=== PATIENT | male | born 1955 | race African-American/Black ===

== ENCOUNTER 2017-11-01 14:59 | Inpatient (IN) | payer OTHER, MEDICAID ==
[~2017-11-01] VITALS: Ht 185.4 cm; Wt 81.2 kg
--- NOTE | 2017-11-01 15:15 | NUR ---
PT PRESENTED TO THE ER WITH A C/O SI WITHOUT A PLAN. PT AMBULATED TO BED #11 WITH A SLOW STEADY GAIT.
--- NOTE | 2017-11-01 15:20 | NUR ---
PT AMBULATED TO THE BATHROOM AND A URINE SAMPLE WAS OBTAINED.
[2017-11-01] MEDS ORDERED: ALPRAZOLAM 0.5 MG TABLET PO ONE (15:30)
[2017-11-01] MEDS ORDERED: ALPRAZOLAM 0.5 MG TABLET ONE (15:39)
[2017-11-01 15:43] LABS: BASOPHILS % (AUTO) 0.4 % (0.0-2.0); EOSINOPHILS % (AUTO) 2.8 % (0.0-6.0); HEMATOCRIT 43 % (39-51); HEMOGLOBIN 14.3 g/dL (13.5-17.5); LYMPHOCYTES # (AUTO) 1.2 /CMM (0.8-4.8); LYMPHOCYTES % (AUTO) 24.6 % (20.0-44.0); MEAN CORPUSCULAR HGB CONC 33 g/dl (31.0-36.0); MEAN CORPUSCULAR VOLUME 86 fL (80-96); MONOCYTES # (AUTO) 0.3 /CMM (0.1-1.30); MONOCYTES % (AUTO) 5.7 % (2.0-12.0); NEUTROPHILS # (AUTO) 3.2 /CMM (1.8-8.9); NEUTROPHILS % (AUTO) 66.5 % (43.0-81.0); PLATELET COUNT (AUTO) 235 /CMM (150-450); RDW COEFFICIENT OF VARIATION 13.2 (11.5-15.0); RED BLOOD CELL COUNT(AUTO) 5.05 MIL/uL (4.5-6.0); WHITE BLOOD COUNT (AUTO) 4.8 K/uL (4.3-11.0)
[2017-11-01 16:09] LABS: ALANINE AMINOTRANSFERASE 45 U/L (12-78); ALBUMIN 3.7 g/dL (3.4-5.0); ALCOHOL, BLOOD < 3 mg/dL (0-0); ALKALINE PHOSPHATASE 110 U/L (46-116); ASPARTATE AMINOTRANSFERASE 27 U/L (15-37); BILIRUBIN,DIRECT 0.1 mg/dL (0.0-0.2); BILIRUBIN,TOTAL 0.3 mg/dL (0.2-1.0); CARBON DIOXIDE 26 mmol/L (21-32); CHLORIDE 107 mmol/L (98-107); CREATININE 1.2 mg/dL (0.6-1.3); GLUCOSE 105 mg/dL (74-106); POTASSIUM 3.8 mmol/L (3.5-5.1); SODIUM SERUM 142 mmol/L (136-145); TOTAL PROTEIN, SERUM 7.4 g/dL (6.4-8.2); UREA NITROGEN, BLOOD 24 mg/dL (7-18)
[2017-11-01 16:23] LABS: ACETAMINOPHEN < 10 ug/ml (10-30); SALICYLATE 2.7 mg/dL (2.8-20.0)
[2017-11-01 16:26] LABS: APPEARANCE,URINE CLEAR (CLEAR); BILIRUBIN,URINE NEGATIVE (NEGATIVE); BLOOD, URINE NEGATIVE Ery/uL (NEGATIVE); COLOR,URINE YELLOW (YELLOW); KETONES,URINE NEGATIVE (NEGATIVE); LEUKOCYTE ESTERASE ,URINE NEGATIVE (NEGATIVE); NITRITE, URINE NEGATIVE (NEGATIVE); PROTEIN,URINE NEGATIVE (NEGATIVE); UGLUCOSE NEGATIVE (NEGATIVE); UROBILINOGEN,URINE 0.2 EU/dL (0.2)
--- NOTE | 2017-11-01 17:15 | NUR ---
Genaro lee in ED - 11/01/17 at 1924 by BERT PT PRESENTED TO THE ER WITH A C/O SI WITHOUT A PLAN. PT AMBULATED TO BED #11 WITH A SLOW STEADY GAIT.
--- NOTE | 2017-11-01 17:24 | NUR ---
CALLED JODEE SAL AND SHE SAID SHE WOULD BE HERE WITHIN THE HOUR
--- NOTE | 2017-11-01 18:06 | NUR ---
PT APPEARS TO BE RESTING COMFORTABLY WITH NO S/S OF PAIN OR DISTRESS.
[2017-11-01] MEDS ORDERED: QUET50TA14 PO (19:10)
[2017-11-01] MEDS ORDERED: ZOLP10TA6 PO (19:10)
[2017-11-01] MEDS ORDERED: LEVO100T9 PO (19:10)
[2017-11-01] MEDS ORDERED: VARE1TAB PO (19:10)
[2017-11-01] MEDS ORDERED: ALPR2TAB7 PO (19:10)
--- NOTE | 2017-11-01 19:25 | NUR ---
PT APPEARS TO BE SLEEPING SOUNDLY WITH NO S/S OF PAIN OR DISTRESS.
--- NOTE | 2017-11-01 20:08 | NUR ---
CALLED NURSING FEATHER TRIMMER AND REQUESTED A GPS BED FOR THIS PT.
--- NOTE | 2017-11-01 20:10 | NUR ---
PT REC'D A SANDWICH AND JUICE WITH JELLO.
--- NOTE | 2017-11-01 20:15 | NUR ---
PT IS ASSIGNED TO GPS RM#: [id number], PT IS DIAGNOSED WITH BI-POLAR DISORDER, AND DR MCCANN IS THE ACCEPTING PSYCHIATRIST
--- NOTE | 2017-11-01 20:44 | NUR ---
ACCEPTING MD'S ARE DR. MCCANN AND DR. WHEATLEY
--- NOTE | 2017-11-01 21:00 | NUR ---
GPS EAR MACHINE OPERATOR NOTES: ADMITTED A 62YO MALE FROM THE ED ON 5150 HOLD FOR DANGER TO SELF WITH COMPLAINS OF SUICIDAL IDEATION. PER HOLD THE PATIENT REPORTED TO BE HEARING VOICES, EXPRESSING SUICIDAL IDEATIONS WITH A PLAN TO OVERDOSE ON MEDICATIONS. PATIENT IS NON COMPLIANT ON MEDICATIONS, HAS A HISTORY IF BIPOLAR DISORDER, FEELING PARANOID AND SUSPICIOUS THAT PEOPLE ARE AFTER HIM. IT IS ALSO STATED IN THE HOLD THAT HE HAS HISTORY OF INPATIENT PSYCHIATRIC TREATMENT IN THE PAST AND THAT VOICES ARE TELLING HIM TO HURT HIMSELF. PATIENT WAS BEING BROUGHT IN THE UNIT VIA WHEELCHAIR BY ED PERSONNEL. PATIENT THEN USHERED TO THE ROOM AND CHANGED TO PATIENT'S CLEAN GOWN. UPON FACE TO FACE EVALUATION, PATIENT PRESENTS ALERT AND ORIENTED X2-3. APPEARS DISHEVELED. UNKEMPT, TALKS MINIMALLY TO STAFF, APPEARS EASILY AGITATED AND REFUSED TO SIGN ADMISSION PAPERS. SKIN AND BODY ASSESSMENT DONE. PATIENT SKIN IS CLEAR AND INTACT. PICTURE OF THE PACEMAKER ON THE RIGHT UPPER CHEST PLACED IN THE CHART. UNABLE TO OBTAIN FULL DETAILED MEDICAL HISTORY PATIENT REQUESTED TO BE LEFT ALONE SO HE CAN SLEEP. PATIENT ADMITS TO HEARING VOICES BUT NOT AT THE PRESENT TIME OF ADMISSION. PATIENT AGREED TO CONTRACT FOR SAFETY AND TO REPORT TO THE NURSES ONCE AUDITORY HALLUCINATIONS SETS IT. PATIENT WILL BE UNDER THE CARE OF DR. MCCANN AND DR. WHEATLEY. DR. WHEATLEY INFORMED OF THE SAID ADMISSION 2135PM AND REMINDED OF THE MED RECON. HE STATED THAT HE WEILL SEE THE PATIENT IN THE MORNING. PATIENT THEN ORIENTATED TO UNIT, STAFF, POLICIES, DOCTORS AND CARE PLAN. Q15 MIN CHECKS AND CARE PLAN INITIATED. PROPER CONTRABAND DONE ON PATIENT. PATIENT INSISTS ON HAVING HIS NATION WATCH WITH HIM AT THE BEDSIDE. WILL MONITOR PATIENT'S MOOD AND BEHAVIOR WHILE ON THE UNIT. WILL ENDORSE PATIENT TO DAY SHIFT NURSE.
[2017-11-01 21:07] VITALS: BP 142/80
[2017-11-01] MEDS ORDERED: TEMAZEPAM 7.5 MG CAPSULE PO PRN (21:30)
[2017-11-01] MEDS ORDERED: MAG HYDROX/AL HYDROX/SIMETH 30 ML UDC PO PRN (21:30)
[2017-11-01] MEDS ORDERED: LORAZEPAM 0.5 MG TABLET PO PRN (21:30)
[2017-11-01] MEDS ORDERED: MAGNESIUM HYDROXIDE 30 ML UDC PO PRN (21:30)
[2017-11-02 01:57] VITALS: BP 142/80
[2017-11-02 07:15] LABS: CREATININE 1.1 mg/dL (0.6-1.3)
[2017-11-02 08:18] VITALS: BP 106/69
[2017-11-02] MEDS ORDERED: IBUPROFEN 400 MG TABLET PO PRN (09:00)
--- NOTE | 2017-11-02 14:24 | NUR ---
UR Review: CYNTHIA faxed clinicals to Nurse Jennie from [facility] fax # and on this date per request. CYNTHIA followed up by calling and informing that clinicals were faxed.
[2017-11-02 16:00] VITALS: BP 130/92
[2017-11-02 20:14] VITALS: BP 130/78
[2017-11-02] MEDS: ACETAMINOPHEN 325 MG TABLET PO PRN (21:26)
[2017-11-02] MEDS ORDERED: QUETIAPINE FUMARATE 25 MG TABLET PO SCH (22:00)
[2017-11-03 08:00] VITALS: BP 115/67
[2017-11-03] MEDS ORDERED: SERTRALINE HCL 50 MG TABLET PO SCH (09:00)
[2017-11-03] MEDS: ACETAMINOPHEN 325 MG TABLET PO PRN ×2 (09:13→21:48)
[2017-11-03] MEDS ORDERED: ZOLPIDEM TARTRATE 10 MG TABLET PO PRN (14:00)
[2017-11-03] MEDS ORDERED: ALPRAZOLAM 0.25 MG TABLET PO PRN (15:00)
[2017-11-03 16:00] VITALS: BP 123/70
[2017-11-03] MEDS ORDERED: QUETIAPINE FUMARATE 25 MG TABLET PO SCH (22:00)
[2017-11-03] MEDS ORDERED: QUETIAPINE FUMARATE 100 MG TABLET PO SCH (22:00)
--- NOTE | 2017-11-04 10:00 | NUR ---
GPS/RN-NOTES PATIENT WAS DISCHARGE TO [facility] TODAY. DR. MCCANN AND DR. WHEATLEY MADE AWARE AND AGREES OF PATIENT DISCHARGE WITH ORDERS. ALL DISCHARGE MEDICATION WAS REVIEWED WITH THE PATIENT WITH UNDERSTANDING.RX WAS GIVEN TO THE PATIENT.PATIENT DID NOT VERBALIZE SI/HI,DENIES VISUAL/AUDITORY HALLUCINATIONS AT THE TIME OF DISCHARGE. PATIENT STRONGLY REFUSED BODY ASSESSMENT PRIOR TO DISCHARGE.STATED" MY BODY IS OK,YOU DON'T HAVE TO LOOK AT IT". SW WORKER GAVE PATIENT A BUS TOKEN AND FACILITY REFERRAL LIST. PATIENT LEFT THE UNIT IN STABLE CONDITION ALERT ORIENTED X4 AMBULATORY WITH STEADY GAIT WITH ALL HIS BELONGINGS. PATIENT PERSON TO NOTIFY SHILOH GREEN ([phone]) WAS UNABLE TO REACH TO NOTIFY PATIENT DISCHARGE.PATIENT.PATIENT WAS ASSISTED TO THE LOBBY BY ONE RADIATION CONTROL SPECIALIST STAFF TO LOBBY FOR SAFETY.
--- NOTE | 2017-11-04 14:57 | NUR ---
Initial Discharge Plan: Pt is homeless and denies having a telephone. When asked regarding place of residence pt stated, "I stay here and there and in the streets." Per pt, address on face sheet, [address] [address], "is an old address." Pt would like to discharge to a [facility] once he is ready and stable. SW will follow up to ensure pt is safely and adequately discharged.
--- NOTE | 2017-11-04 14:59 | NUR ---
Discharge Plan: Patient is homeless. Pt was unable to provide an address for discharge purposes. Pt will discharge at 10:00am. Pt was provided with bus tokens for transportation. Pt has been notified and is in agreement. Pt denied having any family and or friends to notify of his discharge plan. Pt accepted referral to the [facility] (address/telephone # were given to pt). Pt signed the homeless waiver and stated, "I'm fine, I just need to leave today." Pt was referred to the following: Psychiatrist: Dr. Leandro Lee; [address] [place] [address]; . Office Machines Sales Representative: Dr. Armin Richter; [address] [place] [address]; . [facility], [address] [place] [id number]; . Pt agreed to follow through with referrals provided.
== END 2017-11-04 10:00 | disposition other institution (70) | DRG 885 ==
LOC: ER 15:03 → GPS 20:36
PROVIDERS: ADMIT Psychiatry & Neurology Psychiatry; ATTEND Psychiatry & Neurology Psychiatry
DX: F31.5 Bipolar disorder, current episode depressed, severe, with psychotic features (principal); R45.851 Suicidal ideations; F41.9 Anxiety disorder, unspecified; Z95.0 Presence of cardiac pacemaker; Z79.899 Other long term (current) drug therapy; Z59.0 Homelessness; F19.10 Other psychoactive substance abuse, uncomplicated; F17.200 Nicotine dependence, unspecified, uncomplicated; M54.2 Cervicalgia; F39 Unspecified mood [affective] disorder
CPT/HCPCS: 36415; 80048-TC; 80076-TC; 80305; 81000-TC; 82565-TC; 85025-TC; 87081-TC; A4606; G0480; Z7610